=== PATIENT | female | born 1980 | race African-American/Black ===

== ENCOUNTER 2023-04-07 14:32 | Emergency (ER) | payer MEDICAID, OTHER ==
[~2023-04-07] VITALS: Ht 167.6 cm; Wt 98.0 kg
[2023-04-07 14:44] VITALS: BP 150/98; PULSE 88; RESP 16; TEMP 98.7; O2SAT 100
[2023-04-07] MEDS ORDERED: ACETAMINOPHEN 325MG TABLET PO ONE (15:30)
[2023-04-07] MEDS ORDERED: IBUP-2029 MT (16:07)
== END 2023-04-07 16:18 | disposition home or self-care (01) ==
LOC: ER 14:44
DX: S80.11XA Contusion of right lower leg, initial encounter (principal); W18.30XA Fall on same level, unspecified, initial encounter; Y93.89 Activity, other specified; Y92.89 Other specified places as the place of occurrence of the external cause; Y99.8 Other external cause status
CPT/HCPCS: 73552; 73562; 99284